=== PATIENT | male | born 1965 | race Caucasian/White ===

== ENCOUNTER 2018-04-11 17:05 | Emergency (ER) | payer MEDICARE ==
[~2018-04-11] VITALS: Ht 167.6 cm; Wt 75.0 kg
[~2018-04-11 17:05] MED LIST: APAP325 MG PO; BACTRIM DS TABL1 TAB PO; BACTROBAN CREAM15 GM TP; BACTROBAN NASAL1 GM NS; BENADRYL CREA28.3 GM TP; COLACE100 MG PO; COMBIVENT INH14.7 GM INH; COUMADIN5 MG PO; DULCOLAX10 MG/SUPP RC; IPRAT-ALBUT 0.5-3 ML NEB; MIRALAX17 GM PO; MULTI-DAY VITAM1 TAB PO; NORCO 5/325 TAB1 TA1 PO; ONDANSETRON4 MG/2 M3 PO; OXYCODONE HCL10 MG PO; PERCOCET 10/3251 TA1 PO; PERCODAN TABLET1 TAB PO; PROVENTIL/2.5 MG/3 M NEB; PROZAC10 MG PO; RIFADIN300 MG PO; ROXICODONE30 MG PO; SALINE FLUSH10 ML IV; SENOKOT-S TABLE1 TAB PO; SINGULAIR10 MG PO; TUMS500 MG PO; ZOFRAN4 MG PO
[2018-04-11 17:11] VITALS: Ht 167.6 cm; Wt 75.0 kg
[2018-04-11] MEDS ORDERED: XODOL 5-300 TA1 EACH (17:14)
[2018-04-11 18:04] LABS: BASOPHILS 0.1 % (0-2); HEMATOCRIT 43.7 % (42.0-54.0); HEMOGLOBIN 15.1 g/dL (13.5-17.5); IMMATURE GRANULOCYTES 0.3 % (0-5); LYMPHOCYTES 8.8 % (15-50); MCH 31.1 pg (26.0-34.0); MCHC 34.6 g/dL (31.0-37.0); MCV 90.1 fL (80.0-100.0); MEAN PLATELET VOLUME 8.9 fL (7.4-10.4); MONOCYTES 9.5 % (2-11); NEUTROPHILS 78.3 % (40-80); RBC 4.85 10x6/uL (4.20-6.10); WBC 14.4 10x3/uL (4.8-10.8)
[2018-04-11 18:10] LABS: PLATELET COUNT 403 10x3/uL (130-400)
[2018-04-11 18:21] LABS: ALBUMIN 3.6 g/dL (3.4-5.0); ANION GAP 8.7 mmol/L (8-16); BILIRUBIN - TOTAL 0.99 mg/dL (0.2-1.3); CALCIUM 8.8 mg/dL (8.5-10.1); CARBON DIOXIDE 27.7 mmol/L (21.0-32.0); CREATININE - SERUM 1.7 mg/dL (0.6-1.3); POTASSIUM - SERUM 4.4 mmol/L (3.5-5.1); PROTEIN - SERUM 7.7 g/dL (6.4-8.2)
[2018-04-11 18:39] LABS: APPEARANCE CLEAR (CLEAR); BILIRUBIN NEGATIVE (NEGATIVE); COLOR DK YELLOW (YELLOW); GLUCOSE NEGATIVE (NEGATIVE); KETONE NEGATIVE (NEGATIVE); NITRITE NEGATIVE (NEGATIVE); PROTEIN TRACE mg/dL (NEGATIVE); UROBILINOGEN NORMAL (NORMAL)
[2018-04-11 18:40] LABS: RED CELLS - URINE 0-5 /hpf (0-5)
[2018-04-11 18:41] LABS: BACTERIA MODERATE /hpf (NONE SEEN)
[2018-04-11] MEDS ORDERED: NORCO 7.5/325 T1 TA1 PO (19:49)
[2018-04-11 20:21] VITALS: BP 137/74
[2018-04-19] MEDS ORDERED: PROAIR HFA8.5 GM INH (12:54)
== END 2018-04-11 20:51 | disposition home or self-care (01) ==
LOC: D.ER 17:05
PROVIDERS: Emergency Medicine
DX: R10.30 Lower abdominal pain, unspecified (principal)

== ENCOUNTER 2018-04-20 06:55 | Day surgery (SDC) | payer MEDICARE ==
[2018-04-19 13:32] LABS: HEMATOCRIT 46.1 % (42.0-54.0); HEMOGLOBIN 16.1 g/dL (13.5-17.5); MCH 31.2 pg (26.0-34.0); MCHC 34.9 g/dL (31.0-37.0); MCV 89.3 fL (80.0-100.0); MEAN PLATELET VOLUME 8.5 fL (7.4-10.4); RBC 5.16 10x6/uL (4.20-6.10); RDW 12.5 % (11.5-14.5); WBC 11.1 10x3/uL (4.8-10.8)
[~2018-04-20] VITALS: Ht 167.6 cm; Wt 69.9 kg
--- NOTE | ~2018-04-20 | OP ---
PATIENT NAME: ANN-MARIE DALTON MEDICAL RECORD: [id number] :65 LOCATION:[facility] ADMISSION DATE: SURGEON: ROSAS LEE MD DATE OF OPERATION: 04/20/2018 PREOPERATIVE DIAGNOSES: 1. Chronic bilateral groin pain. 2. History of bilateral inguinal hernia repairs with mesh. 3. Asthma. POSTOPERATIVE DIAGNOSES: 1. Chronic bilateral groin pain. 2. History of bilateral inguinal hernia repairs with mesh. 3. Asthma. PROCEDURE: Bilateral groin exploration with ilioinguinal nerve ligation. SURGEON: Rosas Lee MD REGULATORY PROCESS MANAGER: Andree Wilkins APRN REPORT OF PROCEDURE: The patient's lower abdomen and groins were prepped and draped in sterile fashion. We approached the right side first and an oblique incision was made above the inguinal ligament. Electrocautery was used to dissect through the subcutaneous tissues and scar tissue. As we encountered the external oblique fascia, we found the external ring. We opened up the external oblique fascia using electrocautery and eventually was able to elevate the patient's spermatic cord. The Kamala was placed around this. The patient did have a piece of mesh present on the inguinal floor and no sign of a hernia defect. As we dissected out laterally, I was able to find the patient's ilioinguinal nerve, which was progressing through the tissues to the mesh. This was ligated proximal to the mesh. At this point, we inspected the area and found 1 Prolene suture present near the spermatic cord, this was removed. We inspected the patient's pubic tubercle and did not see any evidence of any sutures present in this area. At this point, we irrigated out the wound and stopped any bleeding with electrocautery. The external oblique fascia was closed with running 2-0 Vicryl, Park's was closed with interrupted 3-0 Vicryl and the skin was closed with running subcutaneous 5-0 Monocryl. A 10 mL of 0.25% Marcaine with epinephrine were infused into the tissues on the right side. We then approached the left side. An oblique incision was made above the inguinal ligament and electrocautery was used to dissect through the subcutaneous tissues until we encountered the external oblique fascia. The scar tissue was removed and the fascia was opened up to the external ring using electrocautery. We dissected through the subfascial tissues with care taken not to injure the spermatic cord. Once the spermatic cord was evaluated, it was pushed to the side. The mesh again was noted to be in good position, covering the inguinal floor with no sign of hernia defect. The patient had a few sutures present on this side, a running Prolene on the inguinal ligament, which was removed and 2 interrupted sutures on the superior aspect of the mesh, which were removed. The patient's ilioinguinal nerve was found and again was noted to be projecting through the tissues and it was pulled up into the mesh. This was ligated proximal to the mesh. At this point, the wound was irrigated out and any bleeding was treated with electrocautery except for 1 small area of bleeding, which had to be treated with 3-0 silk [id number] stitch. The external oblique fascia was then closed with running 2-0 Vicryl, Prak's was OPERATIVE REPORT [id number] ANN-MARIE DALTON closed with interrupted 3-0 Vicryl and the skin was closed with running subcutaneous 5-0 Monocryl. Another 10 mL of 0.25% Marcaine with epinephrine was infused into the surrounding tissues and the wound was dressed appropriately. COMPLICATIONS: None. CONDITION: Stable. ANESTHESIA: General endotracheal and local. BLOOD LOSS: 30 mL. TRANSINT:[id number] Voice Confirmation ID: [id number] DOCUMENT ID: [id number] ROSAS LEE MD at 1421 CC: ISAEL LOVE [id number] DICTATION DATE: 04/20/18 1014 [place] MAT INSPECTOR: 04/20/18 1033 [facility] 04/20/18 [id number] [place] [address]
[~2018-04-20 06:55] MED LIST changes: +NORCO 7.5/325 T1 TA1 PO; +PROAIR HFA8.5 GM INH; +XODOL 5-300 TA1 EACH
[2018-04-20 07:52] VITALS: BP 120/71; Ht 167.6 cm; Wt 69.9 kg
== END 2018-04-20 13:29 | disposition home or self-care (01) ==
LOC: D.OPS 06:55
PROVIDERS: Anesthesiology
DX: T85.9XXA Unspecified complication of internal prosthetic device, implant and graft, initial encounter (principal); R10.30 Lower abdominal pain, unspecified; J45.909 Unspecified asthma, uncomplicated; Z01.812 Encounter for preprocedural laboratory examination